=== PATIENT | female | born 1965 | race Asian ===

== ENCOUNTER 2016-12-14 05:45 | Day surgery (SDC) | payer BC ==
[~2016-12-14] VITALS: Ht 165.1 cm; Wt 70.3 kg
[~2016-12-14 05:45] MED LIST: FLAX100032 PO; FOLI-59 PO; OMEG300C3 PO; VITA1CAP PO
[2016-12-14] MEDS ORDERED: CLINDAMYCIN PHOS 600 MG/ D5W 50 ML PREMIX IV ONE (07:00)
[2016-12-14] MEDS ORDERED: fentaNYL CITRATE 250 MCG/5 ML AMP IV ONE (07:30)
[2016-12-14] MEDS ORDERED: MIDAZOLAM HCL 5 MG/5 ML VIAL IVP ONE (07:30)
[2016-12-14] MEDS ORDERED: LR 1,000 ML IV.SOLN IV ONE (07:30)
[2016-12-14] MEDS ORDERED: ONDANSETRON HCL 4 MG/2 ML VIAL IVP ONE (07:30)
[2016-12-14] MEDS ORDERED: SEVOFLURANE 15 MIN GAS INH ONE (07:30)
[2016-12-14] MEDS ORDERED: ROCURONIUM BROMIDE 10 MG/ML (ZEMURON) IV ONE (07:30)
[2016-12-14] MEDS ORDERED: GLYCOPYRROLATE 0.2 MG/ML VIAL IJ ONE (07:30)
[2016-12-14] MEDS ORDERED: NS IRRIG SOLN 1000 ML IR ONE (07:30)
[2016-12-14] MEDS ORDERED: NEOSTIGMINE METHYLSULFATE 1 MG/ML, 10 ML VIAL IVP ONE (07:30)
[2016-12-14] MEDS ORDERED: PROPOFOL 200MG/ 20ML VIAL (DIPRIVAN) IV ONE (07:30)
[2016-12-14] MEDS ORDERED: IOHEXOL 50 ML IV ONE (07:57)
[2016-12-14] MEDS ORDERED: LR 1,000 ML IV SCH (08:25)
[2016-12-14] MEDS ORDERED: METOCLOPRAMIDE HCL 10 MG/2 ML VIAL IVP PRN (08:30)
[2016-12-14] MEDS ORDERED: MORPHINE 4 MG/ML INJ. SYRINGE IVP PRN ×3 (08:30)
[2016-12-14] MEDS ORDERED: D5/0.45 NS 1,000 ML IV SCH (08:57)
[2016-12-14] MEDS ORDERED: HYDROmorphone 1 MG INJ. 1 MG/ML AMPUL IVP PRN (09:00)
[2016-12-14] MEDS ORDERED: HYDROcodone/ACETAMIN 5-325 MG TAB (NORCO/ VICODIN) PO PRN ×2 (09:00)
[2016-12-14] MEDS ORDERED: MORPHINE 4 MG/ML INJ. SYRINGE ONE (09:28)
[2016-12-14] MEDS ORDERED: HYDROcodone/ACETAMIN 5-325 MG TAB (NORCO/ VICODIN) ONE (11:01)
[2016-12-14 12:08] VITALS: BP_SYST 132
== END 2016-12-14 12:31 | disposition home or self-care (01) ==
LOC: SDS 05:45 → SMU 05:45 → SDS 12:31
PROVIDERS: ATTEND Colon & Rectal Surgery
DX: K80.10 Calculus of gallbladder with chronic cholecystitis without obstruction (principal); E78.2 Mixed hyperlipidemia; D12.5 Benign neoplasm of sigmoid colon; E55.9 Vitamin D deficiency, unspecified; M25.579 Pain in unspecified ankle and joints of unspecified foot; L03.119 Cellulitis of unspecified part of limb; M17.12 Unilateral primary osteoarthritis, left knee; Z98.890 Other specified postprocedural states; Z98.51 Tubal ligation status; Z87.891 Personal history of nicotine dependence; Z80.0 Family history of malignant neoplasm of digestive organs; Z84.89 Family history of other specified conditions; Z88.0 Allergy status to penicillin; Z88.8 Allergy status to other drugs, medicaments and biological substances; I10 Essential (primary) hypertension; K21.9 Gastro-esophageal reflux disease without esophagitis
CPT/HCPCS: 47563; 76000; 88304; C1727; C1758; J2250; J2270; J2405; J2704; J2710; J3010; J3490 ×2; J7120; Q9967